=== PATIENT | male | born 1945 | race Caucasian/White ===

== ENCOUNTER → 2025-02-22 14:12 | Outpatient (BNVA) | payer MEDICARE, OTHER, SELFPAY | PROVIDERS: PCP Family Medicine; Referring Provider Family Medicine; Visit Provider Psychiatry & Neurology Neurology | DX: I63.9 Cerebral infarction, unspecified (principal); E78.5 Hyperlipidemia, unspecified; I10 Essential (primary) hypertension; Z79.02 Long term (current) use of antithrombotics/antiplatelets | CPT/HCPCS: 99205 ==

== ENCOUNTER 2025-02-28 10:28 | Outpatient (CLI) | payer MEDICARE, OTHER, SELFPAY | END 2025-02-28 10:29 | disposition home or self-care (01) | PROVIDERS: PCP Family Medicine; Visit Provider Psychiatry & Neurology Neurology | DX: I63.9 Cerebral infarction, unspecified (principal) | CPT/HCPCS: 93246 ==

== ENCOUNTER 2025-03-23 07:15 | Outpatient (CLI) | payer MEDICARE, OTHER, SELFPAY ==
--- NOTE | 2025-03-23 10:23 | W.CARDEVENT ---
Date of service: 03/23/25 Time of Service: 10:23 Cardiac Event Recorder Referring Provider:: Cassidy Ballesteros Indications:: Cerebral infarction Cardiac Event Note: This is a cardiac event monitor. Patient was monitored for 11 days and 12 hours Rhythm throughout was sinus with an average heart rate of 67. Minimum was 41, maximum 135 There were rare ventricular ectopic beats There were rare atrial premature beats. Self-limited atrial runs occurred occasionally. The majority of these were less than 10 beats in duration There was no atrial fibrillation, no high-grade AV block, no pauses greater than 3 seconds No symptoms were reported
== END 2025-03-23 07:16 | disposition home or self-care (01) ==
LOC: CARDOPNVT 07:15
PROVIDERS: PCP Family Medicine; Visit Provider Internal Medicine Cardiovascular Disease
DX: I63.9 Cerebral infarction, unspecified (principal); I49.1 Atrial premature depolarization
CPT/HCPCS: 93248

== ENCOUNTER → 2025-05-30 14:55 | Outpatient (BNVA) | payer MEDICARE, OTHER, SELFPAY | PROVIDERS: PCP Family Medicine; Referring Provider Family Medicine; Visit Provider Psychiatry & Neurology Neurology | DX: I63.9 Cerebral infarction, unspecified (principal); E78.5 Hyperlipidemia, unspecified; I10 Essential (primary) hypertension | CPT/HCPCS: 99214 ==